=== PATIENT | female | born 1980 | race Caucasian/White ===

== ENCOUNTER 2019-03-16 09:39 | Emergency (ER) | payer MEDICAID ==
[~2019-03-16] VITALS: Ht 170.2 cm; Wt 84.0 kg
[~2019-03-16 09:39] MED LIST: FER325 PO; IBUP-1542 PO; LEVO750T25 PO; PREN1TAB49
[2019-03-16 09:41] VITALS: Ht 170.2 cm; Wt 84.0 kg
[2019-03-16] MEDS ORDERED: SODIUM CHLORIDE 0.9% 1L BAG IV* STA (09:46)
[2019-03-16] MEDS ORDERED: KETOROLAC 15 MG INJ IV STA (09:46)
[2019-03-16] MEDS ORDERED: ACETAMINOPHEN 325 MG TAB PO ONE (10:00)
[2019-03-16 11:19] VITALS: BP 128/78; PULSE 88; RESP 16
--- NOTE | 2019-03-16 11:28 | ERD ---
ER Documentation Chief Complaint Chief Complaint cough, body aches & fever x1wk HPI This is a 38-year-old female with no significant past medical history who is presenting with 1 week of fever, chills, general body aches and a productive cough of clear/yellow sputum. She endorses mild shortness of breath. She does not endorse any chest pain or pleuritic pain. She does not endorse any alleviating or exacerbating factors. The patient was found to be tachycardic and febrile in the emergency department. The patient has had no headache or vision changes. The patient does not endorse neck or back pain. The patient denies lightheadedness or dizziness. The patient denies nausea or vomiting. The patient denies abdominal pain. The patient denies changes to bowel movements or urination. The patient has had no focal deficits. The patient has had no weakness or numbness or tingling to the face or extremities. ROS All systems reviewed and are negative except as per history of present illness. Medications Home Meds Reported Medications Ferrous Sulfate* (Ferrous Sulfate*) 325 Mg Tabec, 325 MG PO DAILY, TAB 03/29/15 Vits W-Ca,Fe,Fa(<1MG) () 1 Tab Tablet, DAILY 03/03/10 Allergies Allergies: Coded Allergies: No Known Allergies (Verified Allergy, Mild, 03/03/10) PMhx/Soc History of Surgery: Yes (c section) Anesthesia Reaction: No Hx Neurological Disorder: No Hx Respiratory Disorders: No Hx Cardiac Disorders: No Hx Psychiatric Problems: No Hx Miscellaneous Medical Probl: No Hx Alcohol Use: No Hx Substance Use: No Hx Tobacco Use: No Smoking Status: Never smoker FmHx Family History: No diabetes Physical Exam Vitals Vital Signs Date Temp Pulse Resp B/P (MAP) Pulse Ox O2 O2 Flow FiO2 Time Delivery Rate 03/16/19 99.0 88 16 128/78 100 Room Air 11:19 (95) 03/16/19 Nasal 2.0 10:17 Cannula 03/16/19 Nasal 2 10:12 Cannula 03/16/19 102.8 118 20 134/81 84 09:41 (98) Physical Exam Const: No apparent distress, well-developed, well-nourished Head: Normocephalic, Atraumatic Eyes: Normal Conjunctiva. Extraocular movements intact. ENT: Normal External Ears, Nose and Mouth. Neck: Full range of motion. No meningismus. Resp: Clear to auscultation bilaterally, No wheezes, rales or rhonchi Cardio: Regular rhythm. Tachycardia. No murmurs, rubs or gallops Abd: Soft, non tender, non distended. Normal bowel sounds Skin: No petechiae or rashes Back: No midline tenderness. No CVA tenderness Ext: No cyanosis, or edema Neur: Awake and alert, oriented 4. Cranial nerves intact. No facial droop. Normal strength, sensation and coordination. Psych: Normal Mood and Affect Result Diagram: 03/16/1995403/16/19954 Results 24 hrs Laboratory Tests Test 03/16/19 09:55 03/16/19 09:57 03/16/19 10:00 03/16/19 10:21 White Blood Count 7.1 10^3/ul Red Blood Count 4.04 10^6/ul Hemoglobin 8.4 g/dl Hematocrit 27.8 % Mean Corpuscular 68.8 fl Volume Mean Corpuscular 20.8 pg Hemoglobin Mean Corpuscular 30.2 g/dl Hemoglobin Concen t Red Cell 17.2 % Distribution Width Platelet Count 254 10^3/UL Mean Platelet 9.8 fl Volume Immature 0.600 % Granulocytes % Neutrophils % 79.3 % Lymphocytes % 12.5 % Monocytes % 6.9 % Eosinophils % 0.4 % Basophils % 0.3 % Nucleated Red 0.0 /100WBC Blood Cells % Immature 0.040 10^3/ul Granulocytes # Neutrophils # 5.6 10^3/ul Lymphocytes # 0.9 10^3/ul Monocytes # 0.5 10^3/ul Eosinophils # 0.0 10^3/ul Basophils # 0.0 10^3/ul Nucleated Red 0.0 10^3/ul Blood Cells # Prothrombin Time 13.6 Sec Prothrombin Time 1.1 Ratio INR International 1.03 Normalized Ratio Activated 34.3 Sec Partial Thrombopl ast Time Sodium Level 137 mmol/L Potassium Level 3.9 mmol/L Chloride Level 101 mmol/L Carbon Dioxide 25 mmol/L Level Anion Gap 11 Blood Urea 10 mg/dl Nitrogen Creatinine 0.78 mg/dl Est Glomerular > 60 mL/min Filtrat Rate mL/min Glucose Level 197 mg/dl Calcium Level 8.8 mg/dl Total Bilirubin 0.3 mg/dl Direct Bilirubin 0.00 mg/dl Indirect 0.3 mg/dl Bilirubin Aspartate Amino 31 IU/L Transf (AST/SGOT) Alanine 26 IU/L Aminotransferase (ALT/SGPT) Alkaline 45 IU/L Phosphatase Total Protein 7.7 g/dl Albumin 4.3 g/dl Globulin 3.40 g/dl Albumin/Globulin 1.26 Ratio POC Venous 1.8 mmol/L Lactate Urine Color YELLOW Urine Clarity SLIGHTLY CLOUDY Urine pH 5.0 Urine Specific 1.024 [place] Urine Ketones NEGATIVE mg/dL Urine Nitrite NEGATIVE mg/dL Urine Bilirubin NEGATIVE mg/dL Urine NEGATIVE mg/dL Urobilinogen Urine Leukocyte NEGATIVE Ej/ul Esterase Urine Microscopic 36 /HPF RBC Urine Microscopic 3 /HPF WBC Urine Squamous FEW /HPF Epithelial Cells Urine Mucus FEW /HPF Urine Hemoglobin 3+ mg/dL Urine Glucose 1+ mg/dL Urine Total 2+ mg/dl Protein POC Beta HCG, NEGATIVE Qualitative Current Medications Medications Dose Sig/Anup Start Time Status Last (Trade) Ordered Route PRN Stop Time Admin Dose Reason Admin Sodium 2,520 ml BOLUS OVER 2 03/16/19 DC 03/16/19 Chloride HOURS STAT 09:46 10:07 (NS) IV* 03/16/19 09:50 650 mg ONCE ONCE 03/16/19 DC 03/16/19 Acetaminophen PO 10:00 10:06 (Tylenol 03/16/19 10:01 Tab) Ketorolac 15 mg ONCE STAT 03/16/19 DC 03/16/19 Tromethamine IV 09:46 10:06 (Toradol) 03/16/19 09:50 Procedures/MDM MDM The patient's presentation warrants further investigation. Previous medical records, if available, were reviewed. LABS The patient's laboratory testing was obtained and reviewed. No emergent treatment was required unless described below. CBC: Microcytic anemia, not emergent. No E/o systemic infection or thr ombocytopenia Chemistry: No E/o severe acidosis or alkalosis or renal failure or liver disease or diabetic ketoacidosis PT/INR: No E/o significant coagulopathy Lactate: No E/o severe sepsis Urine: No E/o acute infection. Hematuria, though she is currently on her menses. EKG EKG read by me: Rate/Rhythm: Sinus tachycardia at 109 bpm Intervals: Normal Aylett: Normal Impression: Sinus tachycardia. Nonspecific repolarization changes without ST or T wave changes concerning for acute ischemia. IMAGING Imaging and Radiology interpretation reviewed. CXR FINDINGS: The cardiomediastinal silhouette is within normal limits. There are acute, left mid lung field infiltrates worrisome for pneumonia. No signs of pleural fluid or pneumothorax are seen. The osseous structures and soft tissues are unremarkable. IMPRESSION: Acute, left mid lung infiltrates worrisome for pneumonia. Electronically viewed and signed by Ivette Galindo MD, MD on 03/16/2019 10:10 TREATMENT/DISPOSITION The patient presents with symptoms concerning for pneumonia. The patient was febrile and tachycardic, meeting criteria for a possible systemic inflammatory response syndrome. A sepsis work-up was completed. The patient has no evidence of endorgan damage. She has no leukocytosis. She has no lactic acidosis. I do not suspect sepsis, and I do not feel the patient requires admission for further management. The patient was treated with IV fluids, Toradol and Tylenol in the emergency department with resolution of her fever and tachycardia. The patient's urinalysis demonstrated hematuria. The patient is currently on her menses. I do not suspect nephrolithiasis. Her symptoms are not consistent with renal colic. There is no evidence of urinary tract infection. The patient does have a microcytic anemia. The patient has a history of chronic anemia and used to be on iron. She will be given a prescription for iron in the emergency department. The patient's chest xray does not reveal pneumothorax or pleural effusions or pulmonary edema. The patient does not have a widened mediastinum and does not have signs or symptoms concerning for thoracic aortic aneurysm or dissection. The patient does not have pneumomediastinum or signs concerning for esophageal tear or rupture. The patient has no clinical or radiographic signs of pericardial effusion or tamponade. The patient does not have pneumoperitoneum and I have decreased suspicion of viscus perforation as possible referred pain. The patient does not have a history of heart failure and I have low suspicion for this. The patient does not have a diagnosis of COPD and is not wheezing today. The patient is not tachypneic or hypoxic. The patient is breathing comfortably and without pleuritic pain. The patient is not on hormonal therapy. The patient has no history of clotting or bleeding disorders. The patient has no calf tenderness. The patient has had no hemoptysis. I have decreased suspicion for PE. The patient's EKG is reassuring. I have low suspicion for acute coronary syndrome. DISCHARGE Upon reevaluation of the patient, symptoms have improved. No emergent diagnoses were identified. At this time, I feel that the patient stable for discharge. The patient was instructed to follow-up with a primary care physician in 1-3 days. The patient will be given strict precautions with which to return to the emergency department. Prescriptions: Ibuprofen, Levaquin, iron The patient's blood pressure was elevated at greater than 120/80 while in the emergency department. The patient was otherwise stable with no evidence of hypertensive urgency or emergency. The patient does not require admission for blood pressure control. I have discussed with the patient the risks of hypertension. I have instructed the patient to return to the ER for any new or worsening symptoms including chest pain, shortness of breath, headache, blurred vision, confusion, nausea, vomiting or LOC. I have advised the patient to follow up with the primary care physician for outpatient monitoring and treatment for hypertension in 1-3 days. DISCLAIMER Inadvertent spelling and grammatical errors are likely due to EHR/dictation software use and do not reflect on the overall quality of patient care. Note that the electronic time recorded on this note does not necessarily reflect the actual time of the patient encounter. Departure Diagnosis: Primary Impression: Right middle lobe pneumonia Pneumonia type: due to unspecified organism Qualified Codes: J18.1 - Lobar pneumonia, unspecified organism Additional Impressions: Fever Fever type: unspecified Qualified Codes: R50.9 - Fever, unspecified Tachycardia Microcytic anemia Cough Condition: Stable Patient Instructions: Pneumonia (Adult), Fever Control (Adult), Anemia Additional Instructions: Thank you for for coming to [facility] for your care today. Please ask your nurse or provider if you have questions about your care today and do not leave until all your questions have been answered. Please use any medications given as directed and follow-up with your doctor (or the doctor you were referred to) in the next 1-3 days. If you do not have a primary care doctor you may follow up at the [facility] or [facility] (listed below). You may also use motrin and tylenol as needed for fever and/or pain unless instructe d otherwise by your provider or nurse. Indications for more urgent follow-up have been discussed, but you may return to the Emergency Department at ANY time for any worrisome or worsening symptoms. If you have abdominal pain, please know that no test or exam you received is perfect and you should follow up within 8 hours for continued pain. If you had any imaging studies today, such as an X-Ray or CT Scan, these studies will be reviewed later by a radiologist. You will be called if there are i mportant findings that were not identified today, so make sure the contact information you provided at registration is correct. If you received any narcotic pain control medicine today, such as Vicodin, Morphine or Dilaudid, your coordination and judgment may be affected for a number of hours. Please do not drive or operate heavy machinery, and you may want someone to assist you at home. If you were given a prescription for narcotic medication, be aware that it is very addictive- use sparingly and only if necessary. PLEASE SEEK FURTHER EVALUATION AND MANAGEMENT AT YOUR DOCTORS OFFICE WITHIN THE NEXT 1-3 DAYS. IT IS YOUR RESPONSIBILITY TO MAKE AN APPOINTMENT FOR FOLOW-UP CARE. IF YOU HAVE A PRIMARY DOCTOR, PLEASE CALL THEIR OFFICE TO SCHEDULE AN APPOINTMENT FOR FOLLOW UP. IF YOU DO NOT HAVE A PRIMARY DOCTOR YOU CAN CALL OUR PHYSICIAN REFERRAL HOTLINE AT IF YOU CAN NOT AFFORD TO SEE A PHYSICIAN YOU CAN CHOSE FROM THE FOLLOWING REPLACED BY [facility] OR [facility] CLINICS: [facility] [id number] [facility]. [facility] [address] [facility] [facility] [address] [facility] [facility] [address] [facility] [facility] [address] [facility] [facility] [facility] [address] [place] [address] [facility] [address] [place] [address] [facility] [address] [place] [address] JOLYNN HUGHES MD Mar 16, 2019 11:28
== END 2019-03-16 12:06 | disposition home or self-care (01) ==
LOC: E/R 09:39
DX: J18.1 Lobar pneumonia, unspecified organism (principal); D50.9 Iron deficiency anemia, unspecified; R00.0 Tachycardia, unspecified
CPT/HCPCS: 36415; 71045; 80053; 81001; 81025; 83605; 85025; 85610; 85730; 87086; 93005; 96374; J1885; J7030; Z7502; Z7610